=== PATIENT | female | born 1945 | race Native Hawaiian/Other Pacific Islander ===

== ENCOUNTER 2017-08-30 20:34 | Observation (INO) | payer MEDICAID, OTHER ==
[2017-08-30] MEDS ORDERED: Sodium Chloride 0.9% 1,000 ML IV ONE (21:38)
[2017-08-30] MEDS ORDERED: Sodium Chloride 0.9% 1,000 ML ONE (21:47)
--- NOTE | 2017-08-30 22:03 | C.PDOC ---
History Of Present Illness 71yo female, history of diabetes, hypertension, presents to ED with complaints of abdominal pain, vomiting and diarrhea since this morning. She states she has been unable to tolerate PO intake all day. She states the diarrhea is non bloody and has associated low grade fever. She denies any other medical complaints. Time Seen by Provider: 08/30/17 21:26 Chief Complaint (Nursing): Abdominal Pain History Per: Patient History/Exam Limitations: no limitations Onset/Duration Of Symptoms: Hrs Current Symptoms Are (Timing): Still Present Location Of Pain/Discomfort: Diffuse Associated Symptoms: Vomiting, Diarrhea Past Medical History Reviewed: Historical Data, Nursing Documentation, Vital Signs Vital Signs: Last Vital Signs Temp 98.6 F 08/30/17 23:51 Pulse 106 H 08/30/17 23:51 Resp 18 08/30/17 23:51 BP 162/76 H 08/30/17 23:51 Pulse Ox 97 08/30/17 23:51 - Medical History PMH: Diabetes, HTN, Hypercholesterolemia Surgical History: No Surg Hx Family History: States: No Known Family Hx - Social History Hx Alcohol Use: No Hx Substance Use: No Review Of Systems Except As Marked, All Systems Reviewed And Found Negative. Constitutional: Positive for: Fever Cardiovascular: Negative for: Chest Pain Respiratory: Negative for: Shortness of Breath Gastrointestinal: Positive for: Vomiting, Abdominal Pain, Diarrhea. Negative for: Hematochezia Physical Exam - Physical Exam Appears: Non-toxic, No Acute Distress, Other (fatigued, lethargic) Skin: Normal Color, Warm, Dry Head: Atraumatic, Normacephalic Eye(s): bilateral: Normal Inspection, PERRL, EOMI Oral Mucosa: Dry Neck: Normal ROM, Supple Chest: Symmetrical Cardiovascular: Rhythm Regular Respiratory: Normal Breath Sounds, No Wheezing Gastrointestinal/Abdominal: Soft, Tenderness (epigastric), No Mass, No Guarding , No Rebound Back: Normal Inspection Extremity: Normal ROM, No Deformity, No Swelling Neurological/Psych: Oriented x3 ED Course And Treatment - Laboratory Results Result Diagrams: 08/30/17 22:01 08/30/17 22:01 Lab Interpretation: Abnormal (HC)# 20, Glucose 259, urine concentrated) O2 Sat by Pulse Oximetry: 99 (RA) Pulse Ox Interpretation: Normal Reevaluation Time: 00:54 Reassessment Condition: Unchanged - Physician Consult Information Physician Contacted: Eric Soliz Outcome Of Conversation: Patient to be admitted for rehydration. Requesting CT scan abdomen and pelvis Medical Decision Making Medical Decision Making: Plan: -- Labs -- IV Fluids Disposition - Disposition Disposition: HOSPITALIZED Disposition Time: 00:53 Condition: FAIR - POA Present On Arrival: Poor Glycemic Control - Clinical Impression Clinical Impression: Abdominal pain, Vomiting, Diarrhea, Dehydration - Scribe Statement The provider has reviewed the documentation as recorded by the Scribe (Yina Watts) Provider Attestation: All medical record entries made by the Scribe were at my direction and personally dictated by me. I have reviewed the chart and agree that the record accurately reflects my personal performance of the history, physical exam, medical decision making, and the department course for this patient. I have also personally directed, reviewed, and agree with the discharge instructions and disposition.
[2017-08-30 22:04] LABS: BASO % 0.1 % (0.0-2.0); HEMOGLOBIN 14.7 g/dL (11.0-16.0); LYMPH # 0.6 K/uL (1.0-4.3); LYMPH % 6.3 % (20.0-40.0); MEAN CELL VOLUME 90.6 fL (81.0-99.0); MEAN CORPUSCULAR HEMOGLOBIN 30.7 pg (27.0-31.0); MEAN CORPUSCULAR HGB CONC 33.9 g/dL (33.0-37.0); MEAN PLATELET VOLUME 8.3 fL (7.2-11.7); MONO # 0.3 K/uL (0.0-0.8); MONO % 3.3 % (0.0-10.0); NEUT # 9.1 K/uL (1.8-7.0); NEUT % 90.3 % (50.0-75.0); PLATELET COUNT 206 K/uL (130-400); RBC 4.78 Mil/uL (3.80-5.20); RED CELL DISTRIBUTION WIDTH 13.1 % (11.5-14.5); WHITE BLOOD COUNT 10.1 K/uL (4.8-10.8)
[2017-08-30 22:07] LABS: SQUAMOUS EPITHIAL < 1 /hpf (0-5); URINE BILIRUBIN NEGATIVE (NEGATIVE); URINE BLOOD NEGATIVE (NEGATIVE); URINE CLARITY Clear (Clear); URINE COLOR Yellow (YELLOW); URINE GLUCOSE (UA) 3+ mg/dL (Normal); URINE LEUKOCYTE ESTERASE NEG Leu/uL (Negative); URINE PROTEIN 2+ mg/dL (NEGATIVE); URINE UROBILINOGEN NORMAL mg/dL (0.2-1.0)
[2017-08-30 22:16] LABS: ALB/GLOB RATIO 1.1 (1.0-2.1); ALBUMIN 4.4 g/dL (3.5-5.0); ALT/SGPT 25 U/L (9-52); AST/SGOT 32 U/L (14-36); BLOOD UREA NITROGEN 12 mg/dL (7-17); CALCIUM 9.9 mg/dl (8.6-10.4); GFR AFRICAN-AMERICAN > 60; GFR NON-AFRICAN AMERICAN > 60; LIPASE 121 U/L (23-300)
[2017-08-30 22:31] LABS: LYMPHOCYTE 7 % (20-40); MONOCYTE 2 % (0-10); NEUTROPHIL 91 % (50-75); TOTAL CELLS COUNTED 100
[2017-08-30 22:33] LABS: PLATELET ESTIMATE NORMAL (NORMAL)
[2017-08-30] MEDS ORDERED: Morphine 4 MG/ML VIAL ONE (23:51)
[2017-08-31] MEDS ORDERED: Iohexol 240 (50 ml) PO ONE (00:56)
[2017-08-31] MEDS ORDERED: Iohexol 240 (50 ml) ONE (01:00)
[2017-08-31] MEDS ORDERED: Iodixanol 320 MG/ML 100 ML BOTTLE IV ONE (01:27)
--- NOTE | 2017-08-31 02:57 | CP.PCM.HP ---
<Karen Dick - Last Filed: 08/31/17 03:58> History of Present Illness - History of Present Illness History of Present Illness: 71 year old female with medical history of hypertension and diabetes presents to the ED today for abdominal pain, nausea and vomiting. Patient reports her symptoms started this morning suddenly. The abdominal is located at the periumbilical region, she describes the pain as cramping in quality and non radiating. Patient has vomited numerous times since the onset of her symptoms. Patient also report to have decreased appetite, weakness and multiple bouts of watery diarrhea. Patient had a similar episode 1 month ago, where she went an emergency room and discharge home shortly after. She denies recent antibiotic use, dietary changes, or any other sick contacts. She further denies fever, chills, headache, shortness of breath, chest pain, or urinary symptoms. PMD: [facility] clinic PMHx: HTN, DM PSHx: 1986 Allergy: Ampicillin Family Hx: non contributory Social Hx: denies tobacco, alcohol or any other drug use. Retired, lives with a friend Home meds: Omeprazole 20mg, Tragenta 5mg, Bupropion 300mg, Lisinopril 40mg, Amlodipine 5mg, Celecoxib Present on Admission - Present on Admission Any Indicators Present on Admission: No Review of Systems - Constitutional Constitutional: As Per HPI, Fatigue. absent: Chills, Fever - EENT Eyes: As Per HPI. absent: Blind Spots, Blurred Vision, Change in Vision Ears: As Per HPI. absent: Decreased Hearing, Abnormal Hearing Nose/Mouth/Throat: As Per HPI. absent: Epistaxis, Nasal Obstruction - Breasts Breasts: As Per HPI - Cardiovascular Cardiovascular: As Per HPI. absent: Chest Pain, Chest Pain at Rest, Chest Pain with Activity, Diaphoresis - Respiratory Respiratory: As Per HPI. absent: Cough, Dyspnea, Wheezing - Gastrointestinal Gastrointestinal: As Per HPI, Abdominal Pain, Diarrhea, Nausea, Vomiting - Genitourinary Genitourinary: As Per HPI - Reproductive: Female Reproductive:Female: As Per HPI - Menstruation Menstruation: As Per HPI - Musculoskeletal Musculoskeletal: As Per HPI. absent: Deformity, Numbness, Tingling - Integumentary Integumentary: As Per HPI. absent: Acne, Alopecia - Neurological Neurological: As Per HPI. absent: Dizziness, Numbness, Tremor - Psychiatric Psychiatric: As Per HPI. absent: Anxiety, Depression - Endocrine Endocrine: As Per HPI - Hematologic/Lymphatic Hematologic: As Per HPI Past Patient History - Past Social History Smoking Status: Never Smoked - CARDIAC Hx Hypercholesterolemia: Yes Hx Hypertension: Yes - ENDOCRINE/METABOLIC Hx Endocrine Disorders: Yes Hx Diabetes Mellitus Type 1: Yes - PSYCHIATRIC Hx Substance Use: No Meds Allergies/Adverse Reactions: Allergies Allergy/AdvReac Type Severity Reaction Status Date / Time No Known Allergies Allergy Verified 08/30/17 20:40 Physical Exam - Constitutional Appears: Non-toxic, No Acute Distress, Younger Than Stated Age - Head Exam Head Exam: ATRAUMATIC, NORMOCEPHALIC - Eye Exam Eye Exam: EOMI, Normal appearance - ENT Exam ENT Exam: Mucous Membranes Dry, Mucous Membranes Moist - Neck Exam Neck exam: Positive for: Normal Inspection - Respiratory Exam Respiratory Exam: Clear to Auscultation Bilateral, NORMAL BREATHING PATTERN. absent: Wheezes, Respiratory Distress - Cardiovascular Exam Cardiovascular Exam: REGULAR RHYTHM - GI/Abdominal Exam GI & Abdominal Exam: Hyperactive Bowel Sounds, Soft. absent: Hernia, Tenderness - Extremities Exam Extremities exam: Positive for: pedal edema, pedal pulses present - Neurological Exam Neurological exam: Alert, Oriented x3 - Psychiatric Exam Psychiatric exam: Normal Affect, Normal Mood - Skin Skin Exam: Dry, Warm Results - Vital Signs Recent Vital Signs: Last Vital Signs Temp 98.6 F 08/30/17 23:51 Pulse 106 H 08/30/17 23:51 Resp 18 08/30/17 23:51 BP 162/76 H 08/30/17 23:51 Pulse Ox 99 08/31/17 00:55 - Labs Result Diagrams: 08/30/17 22:01 08/30/17 22:01 Labs: Laboratory Results - last 24 hr 08/30/17 08/30/17 08/30/17 20:45 22:01 22:01 WBC 10.1 RBC 4.78 Hgb 14.7 Hct 43.3 MCV 90.6 MCH 30.7 MCHC 33.9 RDW 13.1 Plt Count 206 MPV 8.3 Neut % (Auto) 90.3 H Lymph % (Auto) 6.3 L [place] % (Auto) 3.3 Eos % (Auto) 0.0 Baso % (Auto) 0.1 Neut # (Auto) 9.1 H Lymph # (Auto) 0.6 L [place] # (Auto) 0.3 Eos # (Auto) 0.0 Baso # (Auto) 0.0 Neutrophils % (Manual) 91 H Lymphocytes % (Manual) 7 L Monocytes % (Manual) 2 Platelet Estimate Normal RBC Morphology Normal Sodium 133 Potassium 3.6 Chloride 96 L Carbon Dioxide 20 L Anion Gap 21 H BUN 12 Creatinine 0.4 L Est GFR ( Amer) > 60 Est GFR (Non-Af Amer) > 60 POC Glucose (mg/dL) 241 H Random Glucose 259 H Calcium 9.9 Total Bilirubin 0.9 AST 32 ALT 25 Alkaline Phosphatase 92 Total Protein 8.6 H Albumin 4.4 Globulin 4.2 H Albumin/Globulin Ratio 1.1 Lipase 121 Urine Color Urine Clarity Urine pH Ur Specific [place] Urine Protein Urine Glucose (UA) Urine Ketones Urine Blood Urine Nitrate Urine Bilirubin Urine Urobilinogen Ur Leukocyte Esterase Urine WBC (Auto) Urine RBC (Auto) Ur Squamous Epith Cells 08/30/17 22:01 WBC RBC Hgb Hct MCV MCH MCHC RDW Plt Count MPV Neut % (Auto) Lymph % (Auto) [place] % (Auto) Eos % (Auto) Baso % (Auto) Neut # (Auto) Lymph # (Auto) [place] # (Auto) Eos # (Auto) Baso # (Auto) Neutrophils % (Manual) Lymphocytes % (Manual) Monocytes % (Manual) Platelet Estimate RBC Morphology Sodium Potassium Chloride Carbon Dioxide Anion Gap BUN Creatinine Est GFR ( Amer) Est GFR (Non-Af Amer) POC Glucose (mg/dL) Random Glucose Calcium Total Bilirubin AST ALT Alkaline Phosphatase Total Protein Albumin Globulin Albumin/Globulin Ratio Lipase Urine Color Yellow Urine Clarity Clear Urine pH 5.0 Ur Specific [place] 1.023 Urine Protein 2+ H Urine Glucose (UA) 3+ H Urine Ketones 2+ H Urine Blood Negative Urine Nitrate Negative Urine Bilirubin Negative Urine Urobilinogen Normal Ur Leukocyte Esterase Neg Urine WBC (Auto) 1 Urine RBC (Auto) 1 Ur Squamous Epith Cells < 1 Assessment & Plan - Assessment and Plan (Free Text) Assessment: Gastroenteritis -infectious etiology vs chronic NSAID use -Afebrile, no leukocytosis -IVF NS@ 100ml/hr -Advance diet as tolerated -protein 5.5 from previous lab a month ago, today 8.6 -Lipase negative -Follow up CT abdomen, stool culture -Zofran prn DM -Last A1C 07/2017 was 8.8 -Hold DM meds due to poor po intake -FS ACHS -ISS HTN -Lisinopril 40mg Prophylactic measures -Protonix -Lovenox <Eric Soliz P - Last Filed: 08/31/17 07:32> Results - Vital Signs Recent Vital Signs: Last Vital Signs Temp 98.3 F 08/31/17 03:59 Pulse 102 H 08/31/17 03:59 Resp 20 08/31/17 03:59 BP 151/73 H 08/31/17 03:59 Pulse Ox 96 08/31/17 03:59 - Labs Result Diagrams: 08/30/17 22:01 08/30/17 22:01 Labs: Laboratory Results - last 24 hr 08/30/17 08/30/17 08/30/17 20:45 22:01 22:01 WBC 10.1 RBC 4.78 Hgb 14.7 Hct 43.3 MCV 90.6 MCH 30.7 MCHC 33.9 RDW 13.1 Plt Count 206 MPV 8.3 Neut % (Auto) 90.3 H Lymph % (Auto) 6.3 L [place] % (Auto) 3.3 Eos % (Auto) 0.0 Baso % (Auto) 0.1 Neut # (Auto) 9.1 H Lymph # (Auto) 0.6 L [place] # (Auto) 0.3 Eos # (Auto) 0.0 Baso # (Auto) 0.0 Neutrophils % (Manual) 91 H Lymphocytes % (Manual) 7 L Monocytes % (Manual) 2 Platelet Estimate Normal RBC Morphology Normal Sodium 133 Potassium 3.6 Chloride 96 L Carbon Dioxide 20 L Anion Gap 21 H BUN 12 Creatinine 0.4 L Est GFR ( Amer) > 60 Est GFR (Non-Af Amer) > 60 POC Glucose (mg/dL) 241 H Random Glucose 259 H Calcium 9.9 Total Bilirubin 0.9 AST 32 ALT 25 Alkaline Phosphatase 92 Total Protein 8.6 H Albumin 4.4 Globulin 4.2 H Albumin/Globulin Ratio 1.1 Lipase 121 Urine Color Urine Clarity Urine pH Ur Specific [place] Urine Protein Urine Glucose (UA) Urine Ketones Urine Blood Urine Nitrate Urine Bilirubin Urine Urobilinogen Ur Leukocyte Esterase Urine WBC (Auto) Urine RBC (Auto) Ur Squamous Epith Cells 08/30/17 08/31/17 22:01 06:18 WBC RBC Hgb Hct MCV MCH MCHC RDW Plt Count MPV Neut % (Auto) Lymph % (Auto) [place] % (Auto) Eos % (Auto) Baso % (Auto) Neut # (Auto) Lymph # (Auto) [place] # (Auto) Eos # (Auto) Baso # (Auto) Neutrophils % (Manual) Lymphocytes % (Manual) Monocytes % (Manual) Platelet Estimate RBC Morphology Sodium Potassium Chloride Carbon Dioxide Anion Gap BUN Creatinine Est GFR ( Amer) Est GFR (Non-Af Amer) POC Glucose (mg/dL) 211 H Random Glucose Calcium Total Bilirubin AST ALT Alkaline Phosphatase Total Protein Albumin Globulin Albumin/Globulin Ratio Lipase Urine Color Yellow Urine Clarity Clear Urine pH 5.0 Ur Specific [place] 1.023 Urine Protein 2+ H Urine Glucose (UA) 3+ H Urine Ketones 2+ H Urine Blood Negative Urine Nitrate Negative Urine Bilirubin Negative Urine Urobilinogen Normal Ur Leukocyte Esterase Neg Urine WBC (Auto) 1 Urine RBC (Auto) 1 Ur Squamous Epith Cells < 1 Attending/Attestation - Attestation I have personally seen and examined this patient.: Yes I have fully participated in the care of the patient.: Yes I have reviewed all pertinent clinical information: Yes Notes (Text): Symptoms of gastroentritis and epigastric pain, on CT duodenitis, pericholecystic fluid, normal lipase, clinically dehydrated, h/o dm, htn, anxiety. Plan NPO IVF Urinary amylase hepatic usg GI consult IV PPI
[2017-08-31] MEDS: Sodium Chloride 0.9% 1,000 ML IV SCH ×4 (03:25→23:58)
--- NOTE | 2017-08-31 03:25 | CT ---
EXAM: CT Abdomen and Pelvis With Intravenous Contrast CLINICAL HISTORY: 71 years old, female; Pain; Abdominal pain; Prior surgery TECHNIQUE: Axial computed tomography images of the abdomen and pelvis with intravenous contrast. All CT scans at this facility use one or more dose reduction techniques, viz.: automated exposure control; ma/kV adjustment per patient size (including targeted exams where dose is matched to indication; i.e. head); or iterative reconstruction technique. 610 images are submitted.Sagittal , axial and coronal MPR reformatted images are submitted. Axial images are submitted in lung and soft tissue windows. Oral contrast was administered. CONTRAST: 100 mL of [id number] administered intravenously. COMPARISON: No relevant prior studies available. FINDINGS: Artifacts: Limited due to motion and misregistration artifacts. Lung bases: There is subsegmental right lower lobe consolidation with hazy patchy infiltration although the lower lobes. These findings can represent atelectasis with failure or pneumonia. ABDOMEN: Liver: Fatty liver. Gallbladder and bile ducts: Partially contracted gallbladder with gallbladder wall thickening near the fundus of the gallbladder. There is mild haziness in the pericholecystic region. These could represent reactive changes. Correlation with clinical data is recommended if acute on chronic cholecystitis is clinically suspected. Pancreas: There is peripancreatic fluid and infiltration which could represent reactive changes.Correlation with pancreatic enzymes is recommended. Minimal prominence of pancreatic duct. Spleen: Left upper quadrant splenules. Unremarkable spleen. Adrenals: Unremarkable. No mass. Kidneys and ureters: Mild distention of bilateral extrarenal pelvis. No hydronephrosis. Stomach and bowel: There is diffuse duodenal thickening with periduodenal inflammatory change representing acute duodenitis. Correlation with clinical data is recommended if duodenal ulcer disease is clinically suspected. Small hiatal hernia with delayed emptying versus gastroesophageal reflux. Duodenal diverticulum. There is distention of the rectosigmoid region with stool. Moderate amount of stool in the colon. Appendix: Normal appendix. PELVIS: Bladder: There is nonspecific bladder wall thickening. This may be related to incomplete distention. Reproductive: Uterus is seen. ABDOMEN and PELVIS: Intraperitoneal space: Unremarkable. No free air. No significant fluid collection. Bones/joints: L5-S1 vacuum degenerative disc disease. No acute fracture. No dislocation. Soft tissues: Unremarkable. Vasculature: Unremarkable. No abdominal aortic aneurysm. Lymph nodes: Unremarkable. No enlarged lymph nodes. IMPRESSION: 1. There is diffuse duodenal thickening with periduodenal inflammatory change representing acute duodenitis. Correlation with clinical data is recommended if duodenal ulcer disease is clinically suspected. 2. Indeterminant gallbladder and reactive changes around the pancreatic head.If clinically warranted, a right upper quadrant ultrasound and correlation with LFTs/pancreatic enzymes may be helpful for further assessment. Correlation with internal medicine evaluation and further workup or followup as recommended by patient's clinical data.
[2017-08-31 07:57] LABS: BASO % 0.2 % (0.0-2.0); HEMOGLOBIN 13.4 g/dL (11.0-16.0); LYMPH # 1.1 K/uL (1.0-4.3); LYMPH % 10.8 % (20.0-40.0); MEAN CELL VOLUME 90.8 fL (81.0-99.0); MEAN CORPUSCULAR HEMOGLOBIN 31.3 pg (27.0-31.0); MEAN CORPUSCULAR HGB CONC 34.5 g/dL (33.0-37.0); MEAN PLATELET VOLUME 8.4 fL (7.2-11.7); MONO # 0.7 K/uL (0.0-0.8); MONO % 7.1 % (0.0-10.0); NEUT # 8.5 K/uL (1.8-7.0); NEUT % 81.9 % (50.0-75.0); RBC 4.27 Mil/uL (3.80-5.20); RED CELL DISTRIBUTION WIDTH 13.1 % (11.5-14.5); WHITE BLOOD COUNT 10.3 K/uL (4.8-10.8)
[2017-08-31 08:12] LABS: ALBUMIN 3.7 g/dL (3.5-5.0); ALT/SGPT 19 U/L (9-52); AST/SGOT 31 U/L (14-36); BLOOD UREA NITROGEN 15 mg/dL (7-17); CALCIUM 8.5 mg/dl (8.6-10.4); GFR AFRICAN-AMERICAN > 60; GFR NON-AFRICAN AMERICAN > 60
[2017-08-31] MEDS: (Novolin R) Insulin Human Regular 100 units/ml vial SC SCH ×4 (09:23→21:46)
[2017-08-31] MEDS ORDERED: Pantoprazole 40 mg EC Tab PO SCH (10:00)
[2017-08-31] MEDS: Enoxaparin 40 mg Syringe SC SCH (10:37)
[2017-08-31] MEDS: Ciprofloxacin 400mg/200ml D5W 400 MG/200 ML BAG IVPB SCH ×2 (12:21→23:53)
--- NOTE | 2017-08-31 13:23 | US ---
HISTORY: duodentis, pericholecystic fluid COMPARISON: CT abdomen pelvis 08/31/2017 TECHNIQUE: Sonographic evaluation of the right upper quadrant abdomen. FINDINGS: LIVER: Liver is unremarkable in echogenicity. No focal liver mass is identified. No intrahepatic biliary ductal dilatation is identified. Portal vein is patent with normal hepatopetal flow. GALLBLADDER: The gallbladder is physiologically distended. No gallstones are identified. Mild thickening of the gallbladder wall measuring 0.4 cm. Trace amount of pericholecystic fluid noted. COMMON BILE DUCT: Normal in caliber measuring 0.4 cm. PANCREAS: The visualized portions are unremarkable in echogenicity. The remainder of the pancreas is obscured by bowel gas. RIGHT KIDNEY: Measures 11.5cm. Unremarkable in echogenicity. No shadowing renal stone, cyst, or hydronephrosis is identified AORTA: No aneurysmal dilatation of the visualized portions. IVC: Visualized portions are unremarkable. OTHER FINDINGS: Dilated tortuous vessel noted anterior to the pancreas. This is also demonstrated on recent CT. When correlated, appears that findings represent a collateral vein that on CT appears to be draining into the SMV/portal confluence. IMPRESSION: Mild gallbladder wall thickening. Trace pericholecystic fluid. Correlate clinically for acalculous cholecystitis. Consider HIDA scan for further evaluation. Collateral vein noted anterior to the pancreas as detailed above.
--- NOTE | 2017-08-31 13:59 | CP.PCM.PN ---
<Esdras eFrnandez - Last Filed: 08/31/17 16:59> Subjective - Date & Time of Evaluation Date of Evaluation: 08/31/17 Time of Evaluation: 13:56 - Subjective Subjective: Patient seen and examined at bedside Used phone histology tech in [place] Patient no longer vomiting and abdominal pain has resolved. Patient still complaining of nausea No SOB or chest pain Denies any recent travel but does say she ate some food she usually doesn't eat at her friends house 1 day ago. She is unsure if her friends are sick as well Admits to a upper respiratory infection 4-5 days ago that has just recently resolved. No other complaints at this time Objective - Vital Signs/Intake and Output Vital Signs (last 24 hours): Temp Pulse Resp BP Pulse Ox 98.3 F 108 H 20 169/64 H 99 08/31/17 08:30 08/31/17 10:38 08/31/17 08:30 08/31/17 10:38 08/31/17 08:30 - Medications Medications: Current Medications Amlodipine Besylate (Norvasc) 10 mg PO DAILY [facility] Enoxaparin Sodium (Lovenox) 40 mg SC DAILY [facility] Last Admin: 08/31/17 10:37 Dose: 40 mg Sodium Chloride (Sodium Chloride 0.9%) 1,000 mls @ 100 mls/hr IV .Q10H [facility] Last Admin: 08/31/17 03:25 Dose: 100 mls/hr Ciprofloxacin (Cipro 400mg/200ml Dsw) 400 mg in 200 mls @ 133 mls/hr IVPB Q12H [facility] PRN Reason: Protocol Last Admin: 08/31/17 12:21 Dose: 133 mls/hr Metronidazole (Flagyl) 500 mg in 100 mls @ 100 mls/hr IVPB Q8 [facility] PRN Reason: Protocol Insulin Human Regular (Novolin R) 0 unit SC ACHS [facility] PRN Reason: Protocol Last Admin: 08/31/17 12:26 Dose: 4 unit Lisinopril (Zestril) 40 mg PO DAILY [facility] Last Admin: 08/31/17 10:38 Dose: 40 mg Ondansetron HCl (Zofran Inj) 4 mg IVP DAILY@ONCE PRN PRN Reason: Nausea/Vomiting Last Admin: 08/31/17 06:07 Dose: 4 mg Pantoprazole Sodium (Protonix Inj) 40 mg IVP DAILY [facility] Last Admin: 08/31/17 10:37 Dose: 40 mg - Labs Labs: 08/31/17 07:45 08/31/17 07:45 - Constitutional Appears: Well - Head Exam Head Exam: ATRAUMATIC, NORMAL INSPECTION, NORMOCEPHALIC - Eye Exam Eye Exam: EOMI, Normal appearance, PERRL Pupil Exam: NORMAL ACCOMODATION, PERRL - ENT Exam ENT Exam: Mucous Membranes Moist, Normal Exam - Neck Exam Neck Exam: Full ROM, Normal Inspection. absent: Lymphadenopathy - Respiratory Exam Respiratory Exam: Clear to Ausculation Bilateral, NORMAL BREATHING PATTERN - Cardiovascular Exam Cardiovascular Exam: REGULAR RHYTHM, +S1, +S2. absent: Murmur - GI/Abdominal Exam GI & Abdominal Exam: Soft, Normal Bowel Sounds. absent: Tenderness - Extremities Exam Extremities Exam: Full ROM, Normal Capillary Refill, Normal Inspection. absent : Joint Swelling, Pedal Edema - Back Exam Back Exam: NORMAL INSPECTION - Neurological Exam Neurological Exam: Alert, Awake, CN II-XII Intact, Normal Gait, Oriented x3 - Psychiatric Exam Psychiatric exam: Normal Affect, Normal Mood - Skin Skin Exam: Dry, Intact, Normal Color, Warm Assessment and Plan (1) Duodenitis without bleeding Assessment & Plan: IVF NS@ 100ml/hr GI ([place]) - follow reccs Lipase normal CT showed acute inflammation of Duodenum Abdominal US Acute kavita unlikely Liquid Diet Cipro 400 Q12 Flagyl 500 Q8 Protonix 40 QD C. diff stool culture H. Pylori stool leuk urine amylase Status: Acute (2) Diabetes Assessment & Plan: ISS Status: Chronic (3) Hypertension Assessment & Plan: Amlodipine 10mg QD Zestril 40 QD Status: Chronic (4) Prophylactic measure Assessment & Plan: Lovenox Protonix scd Status: Acute <Fawad Hood - Last Filed: 08/31/17 19:55> Objective - Vital Signs/Intake and Output Vital Signs (last 24 hours): Temp Pulse Resp BP Pulse Ox 98.6 F 98 H 20 152/74 H 99 08/31/17 16:10 08/31/17 16:10 08/31/17 16:10 08/31/17 16:10 08/31/17 16:10 Intake and Output: 08/31/17 09/01/17 18:59 06:59 Intake Total 880 Balance 880 - Medications Medications: Current Medications Amlodipine Besylate (Norvasc) 10 mg PO DAILY [facility] Enoxaparin Sodium (Lovenox) 40 mg SC DAILY [facility] Last Admin: 08/31/17 10:37 Dose: 40 mg Sodium Chloride (Sodium Chloride 0.9%) 1,000 mls @ 100 mls/hr IV .Q10H [facility] Last Admin: 08/31/17 19:42 Dose: 100 mls/hr Ciprofloxacin (Cipro 400mg/200ml Dsw) 400 mg in 200 mls @ 133 mls/hr IVPB Q12H [facility] PRN Reason: Protocol Last Admin: 08/31/17 12:21 Dose: 133 mls/hr Metronidazole (Flagyl) 500 mg in 100 mls @ 100 mls/hr IVPB Q8 [facility] PRN Reason: Protocol Last Admin: 08/31/17 15:00 Dose: 100 mls/hr Insulin Human Regular (Novolin R) 0 unit SC ACHS [facility] PRN Reason: Protocol Last Admin: 08/31/17 17:29 Dose: 4 unit Lisinopril (Zestril) 40 mg PO DAILY [facility] Last Admin: 08/31/17 10:38 Dose: 40 mg Ondansetron HCl (Zofran Inj) 4 mg IVP DAILY@ONCE PRN PRN Reason: Nausea/Vomiting Last Admin: 08/31/17 06:07 Dose: 4 mg Pantoprazole Sodium (Protonix Inj) 40 mg IVP DAILY [facility] Last Admin: 08/31/17 10:37 Dose: 40 mg - Labs Labs: 08/31/17 07:45 08/31/17 07:45 Attending/Attestation - Attestation I have personally seen and examined this patient.: Yes I have fully participated in the care of the patient.: Yes I have reviewed all pertinent clinical information, including history, physical exam and plan: Yes Notes (Text): 08/31/17 19:52 Patient was seen and examined at 11:45 AM Exam, assessment and plan were gone over with the resident Dr. Esdras GANDHI after midnight for HIDA Scan in the morning 09/01/17. Fawad Hood D.O.
--- NOTE | 2017-08-31 14:52 | CARD ---
APPROVED REPORT EKG Measurement Heart [id number] ME [id number] <Conclusion> Sinus tachycardia Possible Left atrial enlargement Borderline ECG
[2017-08-31] MEDS: metroNIDAZOLE IV 500 mg/100 ml 500 MG/100 ML BAG IVPB SCH ×2 (15:00→21:45)
[2017-09-01] MEDS: metroNIDAZOLE IV 500 mg/100 ml 500 MG/100 ML BAG IVPB SCH ×3 (05:56→21:29)
[2017-09-01] MEDS: (Novolog) Insulin Aspart, Recombinant 100 u/ml 10 ml vial SC SCH ×4 (08:30→21:28)
[2017-09-01] MEDS: Sodium Chloride 0.9% 1,000 ML IV SCH (08:41)
[2017-09-01] MEDS: Enoxaparin 40 mg Syringe SC SCH (09:44)
[2017-09-01] MEDS: Ciprofloxacin 400mg/200ml D5W 400 MG/200 ML BAG IVPB SCH ×2 (11:16→23:53)
[2017-09-01 12:38] LABS: ALBUMIN 3.4 g/dL (3.5-5.0); ALT/SGPT 20 U/L (9-52); AST/SGOT 34 U/L (14-36); BLOOD UREA NITROGEN 10 mg/dL (7-17); CALCIUM 8.1 mg/dl (8.6-10.4); GFR AFRICAN-AMERICAN > 60; GFR NON-AFRICAN AMERICAN > 60
[2017-09-01] MEDS ORDERED: Potassium Chloride 20 mEq ER Tab PO ONE (13:24)
--- NOTE | 2017-09-01 15:08 | NM ---
PROCEDURE: Nuclear Medicine Hepatobiliary Scan HISTORY: R/O Acute Cholecystitis COMPARISON: August 31, 2017. Abdominal ultrasound TECHNIQUE: 5.3 mCi of technetium 99m Mebrofenin was administered intravenously. Planar images of the abdomen were obtained at 5 min intervals to 60 mins. Delayed images were also obtained. FINDINGS: LIVER: Timely and homogenous uptake. COMMON BILE DUCT: identified at 20 mins. GALLBLADDER: identified at 30 mins. SMALL BOWEL: Identified at 40 mins. IMPRESSION: Normal Hepatobiliary Scan. The cystic duct is patent.
--- NOTE | 2017-09-01 19:03 | CP.PCM.PN ---
<Esdras Fernandez - Last Filed: 09/01/17 19:08> Subjective - Date & Time of Evaluation Date of Evaluation: 09/01/17 Time of Evaluation: 19:02 - Subjective Subjective: Patient seen and examined at bedside Belly pain completely resolved Complains of some JAVIER. Mild nausea No other complaints at this time HIDA was negative today tolerating diet Objective - Vital Signs/Intake and Output Vital Signs (last 24 hours): Temp Pulse Resp BP Pulse Ox 98 F 92 H 20 157/74 H 99 09/01/17 16:00 09/01/17 16:00 09/01/17 16:00 09/01/17 16:00 09/01/17 16:00 - Medications Medications: Current Medications Amlodipine Besylate (Norvasc) 10 mg PO DAILY [facility] Last Admin: 09/01/17 09:50 Dose: 10 mg Enoxaparin Sodium (Lovenox) 40 mg SC DAILY [facility] Last Admin: 09/01/17 09:44 Dose: 40 mg Sodium Chloride (Sodium Chloride 0.9%) 1,000 mls @ 100 mls/hr IV .Q10H [facility] Last Admin: 09/01/17 08:41 Dose: 100 mls/hr Ciprofloxacin (Cipro 400mg/200ml Dsw) 400 mg in 200 mls @ 133 mls/hr IVPB Q12H [facility] PRN Reason: Protocol Last Admin: 09/01/17 11:16 Dose: 133 mls/hr Metronidazole (Flagyl) 500 mg in 100 mls @ 100 mls/hr IVPB Q8 BECCA PRN Reason: Protocol Last Admin: 09/01/17 14:17 Dose: 100 mls/hr Insulin Aspart (Novolog) 0 unit SC ACHS [facility] PRN Reason: Protocol Last Admin: 09/01/17 17:38 Dose: 2 unit Lisinopril (Zestril) 40 mg PO DAILY [facility] Last Admin: 09/01/17 09:44 Dose: 40 mg Metoprolol Tartrate (Lopressor) 12.5 mg PO BID [facility] Last Admin: 09/01/17 17:39 Dose: 12.5 mg Ondansetron HCl (Zofran Inj) 4 mg IVP Q8H PRN PRN Reason: Nausea/Vomiting Pantoprazole Sodium (Protonix Inj) 40 mg IVP DAILY [facility] Last Admin: 09/01/17 09:44 Dose: 40 mg - Labs Labs: 08/31/17 07:45 09/01/17 12:11 - Constitutional Appears: Well - Head Exam Head Exam: ATRAUMATIC, NORMAL INSPECTION, NORMOCEPHALIC - Eye Exam Eye Exam: EOMI, Normal appearance, PERRL Pupil Exam: NORMAL ACCOMODATION, PERRL - ENT Exam ENT Exam: Mucous Membranes Moist, Normal Exam - Neck Exam Neck Exam: Full ROM, Normal Inspection. absent: Lymphadenopathy - Respiratory Exam Respiratory Exam: Clear to Ausculation Bilateral, NORMAL BREATHING PATTERN - Cardiovascular Exam Cardiovascular Exam: REGULAR RHYTHM, +S1, +S2. absent: Murmur - GI/Abdominal Exam GI & Abdominal Exam: Soft, Normal Bowel Sounds. absent: Tenderness - Extremities Exam Extremities Exam: Full ROM, Normal Capillary Refill, Normal Inspection. absent : Joint Swelling, Pedal Edema - Back Exam Back Exam: NORMAL INSPECTION - Neurological Exam Neurological Exam: Alert, Awake, CN II-XII Intact, Normal Gait, Oriented x3 - Psychiatric Exam Psychiatric exam: Normal Affect, Normal Mood - Skin Skin Exam: Dry, Intact, Normal Color, Warm Assessment and Plan - Assessment and Plan (Free Text) Assessment: (1) Duodenitis without bleeding Assessment & Plan: IVF LR @ 100ml/hr GI ([facility]) - follow reccs Lipase normal CT showed acute inflammation of Duodenum Abdominal US Acute kavita unlikely CCD Cipro 400 Q12 Flagyl 500 Q8 Protonix 40 QD C. diff stool culture H. Pylori stool leuk negative urine amylase Status: Acute (2) Diabetes Assessment & Plan: ISS Status: Chronic (3) Hypertension Assessment & Plan: Amlodipine 10mg QD Zestril 40 QD Status: Chronic (4) Prophylactic measure Assessment & Plan: Lovenox Protonix scd Status: Acute <Fawad Hood - Last Filed: 09/01/17 19:33> Objective - Vital Signs/Intake and Output Vital Signs (last 24 hours): Temp Pulse Resp BP Pulse Ox 98 F 92 H 20 157/74 H 99 09/01/17 16:00 09/01/17 16:00 09/01/17 16:00 09/01/17 16:00 09/01/17 16:00 - Medications Medications: Current Medications Acetaminophen (Tylenol 325mg Tab) 650 mg PO STAT STA Stop: 09/01/17 19:31 Amlodipine Besylate (Norvasc) 10 mg PO DAILY [facility] Last Admin: 09/01/17 09:50 Dose: 10 mg Enoxaparin Sodium (Lovenox) 40 mg SC DAILY [facility] Last Admin: 09/01/17 09:44 Dose: 40 mg Ciprofloxacin (Cipro 400mg/200ml Dsw) 400 mg in 200 mls @ 133 mls/hr IVPB Q12H [facility] PRN Reason: Protocol Last Admin: 09/01/17 11:16 Dose: 133 mls/hr Metronidazole (Flagyl) 500 mg in 100 mls @ 100 mls/hr IVPB Q8 [facility] PRN Reason: Protocol Last Admin: 09/01/17 14:17 Dose: 100 mls/hr Lactated Ringer's (Lactated Ringer's) 1,000 mls @ 100 mls/hr IV .Q10H [facility] Last Admin: 09/01/17 19:15 Dose: 100 mls/hr Insulin Aspart (Novolog) 0 unit SC ACHS [facility] PRN Reason: Protocol Last Admin: 09/01/17 17:38 Dose: 2 unit Lisinopril (Zestril) 40 mg PO DAILY [facility] Last Admin: 09/01/17 09:44 Dose: 40 mg Metoprolol Tartrate (Lopressor) 12.5 mg PO BID [facility] Last Admin: 09/01/17 17:39 Dose: 12.5 mg Ondansetron HCl (Zofran Inj) 4 mg IVP Q8H PRN PRN Reason: Nausea/Vomiting Pantoprazole Sodium (Protonix Inj) 40 mg IVP DAILY [facility] Last Admin: 09/01/17 09:44 Dose: 40 mg - Labs Labs: 08/31/17 07:45 09/01/17 12:11 Attending/Attestation - Attestation I have personally seen and examined this patient.: Yes I have fully participated in the care of the patient.: Yes I have reviewed all pertinent clinical information, including history, physical exam and plan: Yes Notes (Text): 09/01/17 19:32 Patient was seen and examined at 1:45 PM Exam, assessment and plan were gone over with the resident. Also on Exam: GI completely unremarkable Also on ROS: Soft bowel movements now and NO diarrhea Plan for discharge in the morning. Fawad Hood D.O.
[2017-09-01] MEDS: Lactated Ringer's 1,000 ML IV SCH (19:15)
[2017-09-02] MEDS: Lactated Ringer's 1,000 ML IV SCH (06:13)
[2017-09-02] MEDS: metroNIDAZOLE IV 500 mg/100 ml 500 MG/100 ML BAG IVPB SCH ×2 (06:14→14:02)
[2017-09-02 07:59] LABS: BASO % 0.2 % (0.0-2.0); EOS % 0.3 % (0.0-4.0); HEMOGLOBIN 13.7 g/dL (11.0-16.0); LYMPH # 1.6 K/uL (1.0-4.3); LYMPH % 18.2 % (20.0-40.0); MEAN CELL VOLUME 89.9 fL (81.0-99.0); MEAN CORPUSCULAR HEMOGLOBIN 31.1 pg (27.0-31.0); MEAN CORPUSCULAR HGB CONC 34.6 g/dL (33.0-37.0); MEAN PLATELET VOLUME 8.3 fL (7.2-11.7); MONO % 11.2 % (0.0-10.0); NEUT % 70.1 % (50.0-75.0); NRBC % 0.1 % (0.0-2.0); RBC 4.42 Mil/uL (3.80-5.20); WHITE BLOOD COUNT 8.5 K/uL (4.8-10.8)
[2017-09-02 08:09] VITALS: O2SAT 97
[2017-09-02 08:16] VITALS: BP 116/66; PULSE 73; RESP 18; TEMP 98.2
[2017-09-02] MEDS: (Novolog) Insulin Aspart, Recombinant 100 u/ml 10 ml vial SC SCH ×2 (08:30→12:30)
[2017-09-02 08:35] LABS: ALBUMIN 3.3 g/dL (3.5-5.0); ALT/SGPT 18 U/L (9-52); AST/SGOT 24 U/L (14-36); BLOOD UREA NITROGEN 9 mg/dL (7-17); CALCIUM 8.2 mg/dl (8.6-10.4); GFR AFRICAN-AMERICAN > 60; GFR NON-AFRICAN AMERICAN > 60
[2017-09-02] MEDS: Enoxaparin 40 mg Syringe SC SCH (09:20)
[2017-09-02] MEDS ORDERED: Potassium Chloride 20 mEq/15 ml LIQ UD PO ONE (11:11)
[2017-09-02] MEDS: Ciprofloxacin 400mg/200ml D5W 400 MG/200 ML BAG IVPB SCH (11:26)
--- NOTE | 2017-09-02 12:37 | CP.PCM.DIS ---
Provider - Provider Date of Admission: 08/31/17 00:55 Attending physician: Eric Soliz MD Primary care physician: none Consults: GI: [facility] Time Spent in preparation of Discharge (in minutes): 45 Hospital Course - Lab Results Lab Results: Most Recent Lab Values WBC 8.5 K/uL (4.8-10.8) 09/02/17 07:49 RBC 4.42 Mil/uL (3.80-5.20) 09/02/17 07:49 Hgb 13.7 g/dL (11.0-16.0) 09/02/17 07:49 Hct 39.7 % (34.0-47.0) 09/02/17 07:49 MCV 89.9 fL (81.0-99.0) 09/02/17 07:49 MCH 31.1 pg (27.0-31.0) H 09/02/17 07:49 MCHC 34.6 g/dL (33.0-37.0) 09/02/17 07:49 RDW 13.0 % (11.5-14.5) 09/02/17 07:49 Plt Count 185 K/uL (130-400) 09/02/17 07:49 MPV 8.3 fL (7.2-11.7) 09/02/17 07:49 Neut % (Auto) 70.1 % (50.0-75.0) 09/02/17 07:49 Lymph % (Auto) 18.2 % (20.0-40.0) L 09/02/17 07:49 Graves % (Auto) 11.2 % (0.0-10.0) H 09/02/17 07:49 Eos % (Auto) 0.3 % (0.0-4.0) 09/02/17 07:49 Baso % (Auto) 0.2 % (0.0-2.0) 09/02/17 07:49 Neut # (Auto) 6.0 K/uL (1.8-7.0) 09/02/17 07:49 Lymph # (Auto) 1.6 K/uL (1.0-4.3) 09/02/17 07:49 [place] # (Auto) 1.0 K/uL (0.0-0.8) H 09/02/17 07:49 Eos # (Auto) 0.0 K/uL (0.0-0.7) 09/02/17 07:49 Baso # (Auto) 0.0 K/uL (0.0-0.2) 09/02/17 07:49 Neutrophils % (Manual) 91 % (50-75) H 08/30/17 22:01 Lymphocytes % (Manual) 7 % (20-40) L 08/30/17 22:01 Monocytes % (Manual) 2 % (0-10) 08/30/17 22:01 Platelet Estimate Normal (NORMAL) 08/30/17 22:01 RBC Morphology Normal 08/30/17 22:01 Sodium 131 mmol/L (132-148) L 09/02/17 07:49 Potassium 3.5 mmol/L (3.6-5.2) L 09/02/17 07:49 Chloride 100 mmol/L (98-107) 09/02/17 07:49 Carbon Dioxide 20 mmol/L (22-30) L 09/02/17 07:49 Anion Gap 15 (10-20) 09/02/17 07:49 BUN 9 mg/dL (7-17) 09/02/17 07:49 Creatinine 0.4 mg/dL (0.7-1.2) L 09/02/17 07:49 Est GFR ( Amer) > 60 09/02/17 07:49 Est GFR (Non-Af Amer) > 60 09/02/17 07:49 POC Glucose (mg/dL) 207 mg/dL (65-110) H 09/02/17 11:30 Random Glucose 204 mg/dL (65-105) H 09/02/17 07:49 Calcium 8.2 mg/dl (8.6-10.4) L 09/02/17 07:49 Total Bilirubin 0.6 mg/dL (0.2-1.3) 09/02/17 07:49 AST 24 U/L (14-36) 09/02/17 07:49 ALT 18 U/L (9-52) 09/02/17 07:49 Alkaline Phosphatase 78 U/L (38-126) 09/02/17 07:49 Total Protein 6.6 g/dL (6.3-8.3) 09/02/17 07:49 Albumin 3.3 g/dL (3.5-5.0) L 09/02/17 07:49 Globulin 3.3 gm/dL (2.2-3.9) 09/02/17 07:49 Albumin/Globulin Ratio 1.0 (1.0-2.1) 09/02/17 07:49 Lipase 121 U/L (23-300) 08/30/17 22:01 Urine Color Yellow (YELLOW) 08/30/17 22: Urine Clarity Clear (Clear) 08/30/17 22: Urine pH 5.0 (5.0-8.0) 08/30/17 22:01 Ur Specific [place] 1.023 (1.003-1.030) 08/30/17 22: Urine Protein 2+ mg/dL (NEGATIVE) H 08/30/17 22: Urine Glucose (UA) 3+ mg/dL (Normal) H 08/30/17 22: Urine Ketones 2+ mg/dL (NEGATIVE) H 08/30/17 22: Urine Blood Negative (NEGATIVE) 08/30/17 22: Urine Nitrate Negative (NEGATIVE) 08/30/17 22: Urine Bilirubin Negative (NEGATIVE) 08/30/17 22: Urine Urobilinogen Normal mg/dL (0.2-1.0) 08/30/17 22: Ur Leukocyte Esterase Neg Ion/uL (Negative) 08/30/17 22:01 Urine WBC (Auto) 1 /hpf (0-5) 08/30/17 22:01 Urine RBC (Auto) 1 /hpf (0-3) 08/30/17 22:01 Ur Squamous Epith Cells < 1 /hpf (0-5) 08/30/17 22:01 Ur Random Amylase 90 U/L (32-641) 08/31/17 18:26 Stool Leukocytes, Qual Negative (NEGATIVE) 08/31/17 15:00 - Hospital Course Hospital Course: 71 year old female with medical history of hypertension and diabetes presents to the ED today for abdominal pain, nausea and vomiting. Patient reports her symptoms started this morning suddenly. The abdominal is located at the periumbilical region, she describes the pain as cramping in quality and non radiating. Patient has vomited numerous times since the onset of her symptoms. Patient also report to have decreased appetite, weakness and multiple bouts of watery diarrhea. Patient had a similar episode 1 month ago, where she went an emergency room and discharge home shortly after. She denies recent antibiotic use, dietary changes, or any other sick contacts. She further denies fever, chills, headache, shortness of breath, chest pain, or urinary symptoms. Hospital course: Patient was given fluids as well as started on cipro and flagyl for her duodenitis. GI was consulted. CT scan showed diffuse inflammation of the duodenum and duodenal diverticula as well as possible acute kavita. US was non conclusive but HIDA scan was negative. Patients abdominal pain resolved. nausea resolved. Was able to tolerate a regular diet. Blood pressure was controlled. Patient was discharge with prescriptions and instructions follow up for out patient egd and to follow up with her regular doctor. Discharge Exam - Head Exam Head Exam: ATRAUMATIC, NORMAL INSPECTION, NORMOCEPHALIC - Eye Exam Eye Exam: EOMI, Normal appearance, PERRL Pupil Exam: NORMAL ACCOMODATION, PERRL - Respiratory Exam Respiratory Exam: UNREMARKABLE - Cardiovascular Exam Cardiovascular Exam: REGULAR RHYTHM - GI/Abdominal Exam GI & Abdominal Exam: Normal Bowel Sounds, Soft. absent: Tenderness - Neurological Exam Neurological exam: Alert, CN II-XII Intact, Normal Gait, Oriented x3, Reflexes Normal - Psychiatric Exam Psychiatric exam: Normal Affect, Normal Mood - Skin Skin Exam: Dry, Intact, Normal Color, Warm Discharge Plan - Discharge Medications Prescriptions: amLODIPine [Norvasc] 10 mg PO DAILY #30 tab Lisinopril [Zestril] 40 mg PO DAILY #30 tab Metoprolol Tartrate [Lopressor] 12.5 mg PO BID #60 tab - Follow Up Plan Condition: FAIR Disposition: HOME/ ROUTINE Instructions: Diarrhea in Adolescents and Adults, Dehydration, Adult (DC), Nausea and Vomiting, Adult (DC) Additional Instructions: 1. Please follow up with Doctor in [place] in 7-10 days. You will need EGD as an outpatient. Please make sure this happens as an outpatient. 2. If you remain in the [place] please follow up with us in the clinic. I have attached the information to the clinic. Please call to make an appointment. The number is [phone]. 3. Please take the following medications: Amlodipine 10mg one tablet by mouth once per day with breakfast Lisinopril 40mg one tablet by mouth once per day with lunch Lopressor 12.5mg one tablet by mouth two times per day with breakfast and dinner Metformin 500mg one tablet by mouth two times per day with breakfast and dinner Ciprofloxacin 500mg one tablet by mouth two times per day with breakfast and dinner for 7 more days Flagyl 500mg one tablet by mouth two times per day with breakfast and dinner for 7 more days Florestor 250mg one tablet by mouth two times per day 2 hours after breakfast and 2 hours before dinner for 34 more days 4. continue with a clear liquid diet and advance diet as tolerated 5. Keep well hydrated. Take half Gatorade and half water 6. Take care and be well Referrals: Fawad Hood MD [Staff Provider] -
== END 2017-09-02 15:44 | disposition home or self-care (01) ==
LOC: C.ER 20:34 → C.9E 08-31 00:55 → C.5S 08-31 01:41
PROVIDERS: ADMIT Internal Medicine; ATTEND Internal Medicine
DX: K52.9 Noninfective gastroenteritis and colitis, unspecified (principal); K29.80 Duodenitis without bleeding; E86.0 Dehydration; K57.10 Diverticulosis of small intestine without perforation or abscess without bleeding; I10 Essential (primary) hypertension; R11.2 Nausea with vomiting, unspecified; E11.9 Type 2 diabetes mellitus without complications; Z79.4 Long term (current) use of insulin
CPT/HCPCS: 36415; 74177; 76705; 78226; 80053; 81001; 82150; 82948; 83690; 85025; 87045; 87338; 89055; 93005; 96361; 96365; 96366; 96367; 96372; 96375; 96376; 99285; A9537; C9113; G0378; J0744; J1650; J2270; J2405; J7040; J7120; Q9966; Q9967